=== PATIENT | male | born 1955 | race Hispanic/Latino ===

== ENCOUNTER 2022-06-25 05:50 | Observation (INO) | payer MEDICARE ==
[2022-06-20 13:36] LABS: BASOPHILS % (AUTO) 0.4 % (0.0-5.0); EOSINOPHILS % (AUTO) 4.7 % (0.0-8.0); HEMATOCRIT 45.4 % (42-54); LYMPHOCYTES % (AUTO) 37.1 % (21.0-51.0); MEAN CORPUSCULAR HEMOGLOBIN 32.2 pg (27.0-33.0); MEAN CORPUSCULAR HGB CONC 34.4 g/dL (32.0-36.0); MEAN CORPUSCULAR VOLUME 93.8 fL (79-99); MONOCYTES % (AUTO) 7.7 % (3.0-13.0); NEUTROPHILS % (AUTO) 49.7 % (40.0-77.0); PLATELET COUNT (AUTO) 275 K/uL (130-400); RED BLOOD CELL COUNT(AUTO) 4.84 MIL/uL (4.50-6.20); RED CELL DISTRIBUTION WIDTH 13.2 % (11.0-15.5); WHITE BLOOD COUNT (AUTO) 5.3 K/uL (4.8-10.8)
[2022-06-20 13:44] LABS: CREATININE 0.8 mg/dL (0.5-1.5); POTASSIUM 3.8 mmol/L (3.5-5.1)
[2022-06-20 13:46] LABS: INR 1.03 (0.85-1.15); PROTHROMBIN TIME 11.2 SEC (9.6-11.6)
[2022-06-20 13:48] LABS: PARTIAL THROMBOPLASTIN TIME 30.2 SEC (26.3-35.5)
[2022-06-20 14:07] VITALS: BP 137/77
[~2022-06-25] VITALS: Ht 180.3 cm; Wt 94.3 kg
[2022-06-25] VITALS (27 sets, daily range): BP systolic 97–153; BP diastolic 47–100
[~2022-06-25 05:50] MED LIST: LISI5TAB21 PO; TRAM50TA4 PO
[2022-06-25] MEDS ORDERED: LACTATED RINGERS 1000ML 1,000 ML IV SCH (06:00)
[2022-06-25] MEDS: CEFAZOLIN SODIUM 2 GM VIAL IVPB SCH ×2 (06:00→12:50)
[2022-06-25] MEDS ORDERED: ROPIVICAINE 250MG+KETOROLAC 15MG+EPINEPHRINE 0.3+CLONIDINE 80 IV PRN ×5 (08:00)
[2022-06-25] MEDS: TRANEXAMIC ACID 1000MG/10ML IJ SCH ×2 (09:00→12:53)
[2022-06-25] MEDS ORDERED: MIDAZOLAM HCL 1 MG/ML 2ML VIAL ONE (11:48)
[2022-06-25] MEDS ORDERED: ROCURONIUM 10MG/1ML SYR 10 MG/ML ML ONE ×2 (12:21→13:13)
[2022-06-25] MEDS ORDERED: ONDANSETRON 4MG INJ ONE (12:21)
[2022-06-25] MEDS ORDERED: PROPOFOL 10 MG/ML 20ML VIAL IV ONE (12:21)
[2022-06-25] MEDS ORDERED: TRANEXAMIC ACID 1000MG/10ML ONE (12:38)
[2022-06-25] MEDS ORDERED: EPHEDRINE SULFATE 50 MG/ML AMPULE ONE (12:55)
[2022-06-25] MEDS ORDERED: HYDROCODONE/ACETAMINOPHEN 10/325 MG TAB PO PRN (13:00)
[2022-06-25] MEDS ORDERED: KCL 20 MEQ ERTAB PO PRN (13:00)
[2022-06-25] MEDS ORDERED: LIDOCAINE HCL-MPF 1% 2ML VIAL IV PRN (13:00)
[2022-06-25] MEDS ORDERED: POTASSIUM CHLORIDE 20MEQ/100ML 100 ML IV PRN (13:00)
[2022-06-25] MEDS ORDERED: ONDANSETRON 4MG INJ IVP PRN (13:00)
[2022-06-25] MEDS ORDERED: POTASSIUM CHLORIDE 10% ELIXIR 20 MEQ/15 ML UDCUP PO PRN (13:00)
[2022-06-25] MEDS ORDERED: HYDROCODONE/ACETAMINOPHEN 5/325 MG TAB PO PRN (13:00)
[2022-06-25] MEDS ORDERED: FENTANYL CITRATE PF 50 MCG/1 ML 2ML VIAL ONE ×3 (13:12→14:36)
[2022-06-25] MEDS ORDERED: HYDRALAZINE 20MG/ML VIAL ONE (13:46)
[2022-06-25] MEDS ORDERED: MEPERIDINE-PF 25 MG/ML SYG ONE ×2 (13:52→15:29)
[2022-06-25] MEDS ORDERED: LIDOCAINE HCL-MPF 1% 5ML AMP IJ ONE (14:36)
[2022-06-25] MEDS ORDERED: GLYCOPYRROLATE 1 MG/5 ML SYRINGE ONE (14:37)
[2022-06-25] MEDS ORDERED: ROPIVACAINE 0.5% 5MG/ML 30ML IJ ONE (14:44)
[2022-06-25] MEDS ORDERED: LIDOCAINE 1%-EPI 1:100,000 20 ML VIAL IJ ONE (14:44)
[2022-06-25] MEDS: ACETAMINOPHEN 1,000 MG/100 ML VIAL IV SCH ×2 (15:39→20:23)
[2022-06-25] MEDS: IBUPROFEN 800MG + NS 250ML IV SCH ×2 (16:58→23:55)
[2022-06-25] MEDS: 0.9%NACL 1000ML 1,000 ML IV SCH ×2 (16:58→23:00)
[2022-06-25] MEDS: CEFAZOLIN SODIUM 2 GM VIAL IVP SCH (18:09)
[2022-06-25] MEDS: TRAMADOL HCL 50 MG TABLET PO SCH ×2 (18:14→23:20)
[2022-06-25] MEDS: FAMOTIDINE 20MG TAB PO SCH (20:22)
[2022-06-26] MEDS: ACETAMINOPHEN 1,000 MG/100 ML VIAL IV SCH (01:11)
[2022-06-26] MEDS: CEFAZOLIN SODIUM 2 GM VIAL IVP SCH (01:12)
[2022-06-26 04:08] VITALS: BP 124/69
[2022-06-26 04:57] LABS: HEMATOCRIT 38.8 % (42-54); MEAN CORPUSCULAR HEMOGLOBIN 32.6 pg (27.0-33.0); MEAN CORPUSCULAR HGB CONC 33.8 g/dL (32.0-36.0); MEAN CORPUSCULAR VOLUME 96.5 fL (79-99); RED BLOOD CELL COUNT(AUTO) 4.02 MIL/uL (4.50-6.20); RED CELL DISTRIBUTION WIDTH 13.3 % (11.0-15.5); WHITE BLOOD COUNT (AUTO) 7.4 K/uL (4.8-10.8)
[2022-06-26 05:09] LABS: CREATININE 0.8 mg/dL (0.5-1.5); POTASSIUM 3.7 mmol/L (3.5-5.1)
[2022-06-26] MEDS: MORPHINE 4 MG SYG IVP PRN ×2 (05:35→12:19)
[2022-06-26] MEDS: TRAMADOL HCL 50 MG TABLET PO SCH ×3 (05:35→11:59)
[2022-06-26 08:00] VITALS: BP 111/67
[2022-06-26] MEDS: IBUPROFEN 800MG + NS 250ML IV SCH (08:38)
[2022-06-26] MEDS: FAMOTIDINE 20MG TAB PO SCH (08:39)
[2022-06-26] MEDS: 0.9%NACL 1000ML 1,000 ML IV SCH (08:44)
[2022-06-26] MEDS ORDERED: TRAMADOL HCL 50 MG TABLET PO SCH (09:00)
[2022-06-26] MEDS ORDERED: LISINOPRIL 5 MG TABLET PO SCH (09:00)
[2022-06-26] MEDS ORDERED: POLYETHYLENE GLYCOL 3350 17 GM POWD.PACK PO SCH (09:00)
[2022-06-26 12:00] VITALS: BP 106/59
[2022-06-26] MEDS ORDERED: ASPIRIN 81 MG EC TAB PO SCH (21:00)
[2022-06-28] MEDS ORDERED: BISACODYL 10 MG SUPP.RECT RC PRN (13:00)
== END 2022-06-26 14:38 | disposition home or self-care (01) ==
LOC: DAH 05:50 → DAHIP 05:51 → DAH 05:51 → 4BH 16:20
PROVIDERS: ADMIT Orthopaedic Surgery; ATTEND Orthopaedic Surgery
DX: M17.11 Unilateral primary osteoarthritis, right knee (principal); Z20.822 Contact with and (suspected) exposure to COVID-19; I10 Essential (primary) hypertension; M54.16 Radiculopathy, lumbar region; Z79.899 Other long term (current) drug therapy; Z98.890 Other specified postprocedural states; Z68.29 Body mass index [BMI] 29.0-29.9, adult
CPT/HCPCS: 80048 ×2; 85025; 85610; 85730; 87426; 36415 ×2; 87641; 27447; 20985; 96365; 96366 ×2; 96375 ×2; 96367; 64447; 97039 ×2; 96376; 96368; 85027; 97161; 97116 ×2; 97530 ×2; A6260; A4649 ×5; C1776 ×4; G0378 ×23; A4663; J7120 ×2; J3010 ×2; J3490 ×6; J0171; J0360; J2250; J2704; J2405; J2175 ×2; J2795 ×2; J1885; J1741 ×3; J0735; J0690 ×3; A6223; G0168; A5120; A4215; A4223; A4222; A4221; J2270 ×2